=== PATIENT | male | born 2000 | race Hispanic/Latino ===

== ENCOUNTER 2021-07-29 14:00 | Emergency (ER) | payer OTHER ==
--- OUTSIDE RECORDS SUMMARY | 2021-07-29 14:03 | XMS REPORT | Continuity of Care Document ---
:2000 Author Organization [facility] t Address [address] [place] [address] Care Team Providers Name Role Phone AMBERLY Primary Care Physician Unavailable AMBERLY Attending Clinician Unavailable Tim HERNANDEZ Attending Clinician Payers Payer Name Policy Type Policy Number Effective Date Expiration Date S nikolai [facility] [id number] 2019 00:00:00 Problems Condition Condition Condition Status Onset Resolution Last Treating Co mments Source Name Details Category Date Date Treatment Clinician Date Depression Depression Disease Active U nivers , , 7-20 ity of [place] depression depression Br anch type type Medication Medication Disease Active Overview : Univers management management 6-11 Formattin ity of 00:00: g of this note Medical might be Branch different from the original. 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 type 2 in 00:00: Liliana huynh obese obese [facility] Obesity, Obesity, Disease Active Unive rs Class II, Class II, 09-23 ity of BMI BMI 00:00: [place] 35-39.9 35-39.9 [facility] Acanthosis Acanthosis Disease Active U nivers nigricans nigricans 09-23 ity of 00:00: [place] [facility] Family Family Disease Active Univers history of history of 09-23 it y of diabetes diabetes 00:00: [place] mellitus mellitus 00 Medica l (DM) (DM) Branch Elevated Elevated Disease Active Unive rs liver liver 09-23 ity of enzymes enzymes 00:00: [address] Allergies, Adverse Reactions, Alerts Allergy Allergy Status Severity Reaction(s) Onset Inactive Treating Comm ents Source Name Type Date Date Clinician NO KNOWN Drug Active Univers ALLERGIE Class ity of [facility] Social History Social Habit Start Date Stop Date Quantity Comments Source Exposure to Not sure [facility] Tobacco use and 2017-01-31 2017-01-31 Never used [facility] exposure 00:00:00 00:00:00 [facility] Sex Assigned At [birth year] [facility] 00:00:00 00:00:00 [facility] Smoking Status Start Date Stop Date Source Never smoker [facility] Medications Ordered Filled Start Stop Current Ordering Indication Dosage Frequency Signature Comments Components Source Medication Medication Date Date Medication? Clinician (SIG) Name Name metformin Yes [id number] TAKE 2 Un [facility] 500 mg 2-22 TABLETS BY ity of 24 hr 00:00: MOUTH [place] tablet 00 TWICE Medical DAILY WITH Branch MEALS metformin Yes [id number] TAKE 2 [facility] [place] 500 mg 2-22 TABLETS BY ity of 24 hr 00:00: MOUTH [place] tablet 00 TWICE Medical DAILY WITH Branch MEALS Immunizations Ordered Immunization Filled Immunization Date Status Commen ts Source Name Name SARS-COV-2 COVID-19 2021-05-07 Completed Unive rsity of PFIZER VACCINE 00:00:00 [facility] SARS-COV-2 COVID-19 2021-05-07 Completed Unive rsity of PFIZER VACCINE 00:00:00 [facility] SARS-COV-2 COVID-19 2020-06-22 Completed Unive rsity of PFIZER VACCINE 00:00:00 [facility] SARS-COV-2 COVID-19 2020-06-22 Completed Unive rsity of PFIZER VACCINE 00:00:00 [facility] SARS-COV-2 COVID-19 2020-06-01 Completed Unive rsity of PFIZER VACCINE 00:00:00 [facility] SARS-COV-2 COVID-19 2020-06-01 Completed Unive rsity of PFIZER VACCINE 00:00:00 [facility] Influenza Virus 2020-02-22 Completed Universit y of Vaccine Quad .5 mL IM 00:00:00 [facility] 6+ MO Branch Influenza Virus 2020-02-22 Completed Universit y of Vaccine Quad .5 mL IM 00:00:00 [facility] 6[facility] Meningococcal 2017-09-07 Completed University of Polysaccharide 00:00:00 [facility] (groups A, C, Y and Branc h W-135) conjugate vaccine (MCV4P) Meningococcal 2017-09-07 Completed University of Polysaccharide 00:00:00 [facility] (groups A, C, Y and Branc h W-135) conjugate vaccine (MCV4P) HPV 2014-11-06 Completed University of 00:00:00 [facility] HPV 2014-11-06 Completed University of 00:00:00 [facility] Vital Signs Vital Name Observation Time Observation Value Comments Source Systolic blood 2021-05-07 20:36:00 137 mm[Hg] Univer sity of pressure [facility] Diastolic blood 2021-05-07 20:36:00 83 mm[Hg] Unive rsity of pressure [facility] Heart rate 2021-05-07 20:36:00 92 /min [facility] Body temperature 2021-05-07 20:36:00 36.22 [facility] Respiratory rate 2021-05-07 20:36:00 16 /min [facility] Body weight 2021-05-07 20:36:00 154.223 kg [facility] BMI 2021-05-07 20:36:00 45.06 kg/m2 [facility] Body mass index 2021-05-07 20:36:00 99.81 % Unive rsity of (BMI) [Percentile] [facility] ical Per age and sex Branch Oxygen saturation in 2021-05-07 20:36:00 97 /min [facility] Arterial blood by [facility] Pulse oximetry Branch Procedures Procedure Date / Time Performed Performing Clinician Sour e SARS-COV-2 COVID-19 2021-05-07 21:05:39 Georgi Dumont [facility] VACCINE,0.3ML,IM Medical Branch (PFIZER) Encounters Start End Encounter Admission Attending Care Care Encounter Source Date/Time Date/Time Type Type Clinicians Facility Department ID 2021-11-06 2021-11-06 Outpatient R [facility] [id number] Univers 16:00:00 16:00:00 [id number] [facility] 2021-08-05 2021-08-05 [id number] Univers 16:20:00 16:20:00 ENZO ity [facility] 2021-05-07 2021-05-07 Office Georgi Dumont [facility] [id number] Univers 14:20:00 15:46:42 Visit LEBRON [id number] it y of P[id number] [facility] [id number] [facility] 225 Branch 2021-05-07 2021-05-07 [id number] Univers 14:20:00 14:20:00 ENZO thiago [facility] Results This patient has no known results.
[2021-07-29] MEDS ORDERED: NA CHLORIDE 0.9% 1,000 ML ONE (14:58)
[2021-07-29] MEDS ORDERED: KETOROLAC 30 MG/ML INJ ONE (14:58)
[2021-07-29 15:14] LABS: Urine Blood Negative (Negative); Urine Glucose Trace (Negative); Urine Protein 1+ (Negative); Urine Specific Gravity >=1.030 (1.005-1.030)
[2021-07-29 15:39] LABS: Albumin 4.2 g/dL (3.4-5.0); Bilirubin Total 0.8 mg/dL (0.2-1.0); Potassium 3.9 mmol/L (3.5-5.1); Protein, Total 7.9 g/dL (6.4-8.2)
[2021-07-29 15:51] LABS: Absolute Lymphocytes (CBC) 2.4 K/uL (0.7-4.9); Hematocrit 40.8 % (39.6-49.0); Lymphocytes % 17.5 % (15.3-44.8); MPV 8.4 fL (7.6-11.3); RBC Red Blood Cell Count 5.91 M/uL (4.33-5.43)
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
--- NOTE | 2021-07-29 16:35 | RAD REPORT ---
EXAM DESCRIPTION: RAD - Elbow Left 3 View - 07/29/2021 4:21 pm CLINICAL HISTORY: Pain COMPARISON: No comparisons FINDINGS: No fracture or dislocation
--- NOTE | 2021-07-29 16:35 | RAD REPORT ---
EXAM DESCRIPTION: RAD - Shoulder Right 2 View - 07/29/2021 4:21 pm CLINICAL HISTORY: PAIN COMPARISON: No comparisons FINDINGS: No acute fracture seen.
--- NOTE | 2021-07-29 16:39 | RAD REPORT ---
EXAM DESCRIPTION: RAD - Pelvis - 07/29/2021 4:21 pm CLINICAL HISTORY: Pain COMPARISON: No comparisons FINDINGS: No fracture or dislocation seen. Contrast is seen in the urinary bladder.
--- NOTE | 2021-07-29 16:40 | RAD REPORT ---
EXAM DESCRIPTION: RAD - Hip Right 2 View - 07/29/2021 4:21 pm CLINICAL HISTORY: PAIN COMPARISON: No comparisons FINDINGS: No fracture or dislocation.
== END 2021-07-29 17:00 | disposition home or self-care (01) ==
LOC: ER 14:00
DX: S40.011A Contusion of right shoulder, initial encounter (principal); S70.01XA Contusion of right hip, initial encounter; S50.02XA Contusion of left elbow, initial encounter; V43.62XA Car passenger injured in collision with other type car in traffic accident, initial encounter; Y93.89 Activity, other specified; Y92.410 Unspecified street and highway as the place of occurrence of the external cause
CPT/HCPCS: 85025; 36415; 81003; 80053; 70450; 72125; 71260; 74177; 71046; 72170; 73502; 73080; 73030; 96374; 99285; Q9967; J7030